=== PATIENT | male | born 1960 | race Caucasian/White ===

== ENCOUNTER 2016-09-05 09:12 | Emergency (ER) | payer OTHER ==
[~2016-09-05] VITALS: Ht 172.7 cm; Wt 85.7 kg
[2016-09-05 10:24] VITALS: BP 122/61
== END 2016-09-05 10:24 | disposition home or self-care (01) ==
LOC: ED 09:12
DX: F41.9 Anxiety disorder, unspecified (principal); I10 Essential (primary) hypertension; I48.0 Paroxysmal atrial fibrillation

== ENCOUNTER 2017-02-18 08:30 | Emergency (ER) | payer OTHER ==
[2017-02-18 09:42] LABS: microscopic required? NO
[2017-02-18 09:42] LABS: BASOPHIL % 0.2 % (0-2); PLATELET COUNT 198 x10^3mcL (130-400); RED CELL DISTRIBUTION WIDTH 13.1 % (11.5-14.5)
[2017-02-18 09:58] LABS: CALCIUM 8.6 mg/dL (8.5-10.1); CARBON DIOXIDE 28.2 mmol/L (21-32); CHLORIDE SERUM 106 mmol/L (98-107); CREATININE SERUM 0.9 mg/dL (0.7-1.3); GFR1 > 60 mL/min; GLUCOSE SERUM 140 mg/dL (74-106); POTASSIUM SERUM 4.4 mmol/L (3.5-5.1); SODIUM SERUM 138 mmol/L (136-145)
[2017-02-18 09:58] LABS: AMPHETAMINE QUAL UR NONE DETECTED (NEG <=1000)
[2017-02-18 10:10] LABS: ALBUMIN 3.7 g/dL (3.4-5.0); ALKALINE PHOSPHATASE 64 U/L (46-116); ALT/SGPT 32 U/L (16-63); AST/SGOT 21 U/L (15-37); BILIRUBIN TOTAL 0.9 mg/dL (0.20-1.00); CHOLESTEROL 151 mg/dL (<200); HDL CHOLESTEROL 44 mg/dL (40-60); T4(THYROXINE) 6.3 ug/dL (4.7-13.3)
[2017-02-18 10:23] LABS: urine erythrocyte NEGATIVE (NEGATIVE)
[2017-02-18 11:25] VITALS: BP 123/86
== END 2017-02-18 11:25 | disposition home or self-care (01) ==
LOC: ED 08:30
PROVIDERS: Emergency Medicine
DX: I10 Essential (primary) hypertension (principal); I48.0 Paroxysmal atrial fibrillation; Z85.528 Personal history of other malignant neoplasm of kidney
CPT/HCPCS: 36415; 83880

== ENCOUNTER 2017-06-04 08:24 | Emergency (ER) | payer OTHER ==
[~2017-06-04] VITALS: Ht 172.7 cm; Wt 87.2 kg
[2017-06-04 08:32] VITALS: Ht 172.7 cm; Wt 87.2 kg
[2017-06-04 10:00] VITALS: BP 124/78
== END 2017-06-04 10:00 | disposition home or self-care (01) ==
LOC: ED 08:24
DX: R00.2 Palpitations (principal); I10 Essential (primary) hypertension

== ENCOUNTER 2017-11-20 07:31 | Emergency (ER) | payer OTHER ==
[~2017-11-20] VITALS: Ht 172.7 cm; Wt 88.0 kg
[2017-11-20 07:37] VITALS: Ht 172.7 cm; Wt 88.0 kg
[2017-11-20 08:26] LABS: BASOPHIL % 0.1 % (0-2); PLATELET COUNT 193 x10^3mcL (130-400); RED CELL DISTRIBUTION WIDTH 13.3 % (11.5-14.5)
[2017-11-20 08:29] LABS: CALCIUM 8.6 mg/dL (8.5-10.1); CARBON DIOXIDE 27.1 mmol/L (21-32); CHLORIDE SERUM 103 mmol/L (98-107); CREATININE SERUM 1.1 mg/dL (0.7-1.3); GFR1 > 60 mL/min; GLUCOSE SERUM 126 mg/dL (74-106); POTASSIUM SERUM 3.5 mmol/L (3.5-5.1); SODIUM SERUM 142 mmol/L (136-145)
[2017-11-20 08:33] LABS: ALBUMIN 3.8 g/dL (3.4-5.0); ALKALINE PHOSPHATASE 63 U/L (46-116); ALT/SGPT 14 U/L (16-63); AMYLASE 78 U/L (25-115); AST/SGOT 25 U/L (15-37); BILIRUBIN TOTAL 2.06 mg/dL (0.20-1.00); LIPASE 116 IU/L (73-393); TOTAL PROTEIN, SERUM 6.9 g/dL (6.4-8.2)
[2017-11-20 08:35] LABS: microscopic required? NO
[2017-11-20 09:26] LABS: UA SPECIFIC GRAVITY 1.015 (1.005-1.035); urine erythrocyte NEGATIVE (NEGATIVE)
[2017-11-20 10:50] VITALS: BP 113/71
== END 2017-11-20 10:50 | disposition home or self-care (01) ==
LOC: ED 07:31
PROVIDERS: Emergency Medicine
DX: R10.10 Upper abdominal pain, unspecified (principal); R11.10 Vomiting, unspecified; E86.0 Dehydration; I10 Essential (primary) hypertension; I48.91 Unspecified atrial fibrillation; D49.519 Neoplasm of unspecified behavior of unspecified kidney
CPT/HCPCS: 83880; J2405; J7030

== ENCOUNTER 2018-01-02 22:29 | Emergency (ER) | payer OTHER ==
[~2018-01-02] VITALS: Ht 172.7 cm; Wt 86.2 kg
[2018-01-02 22:42] VITALS: Ht 172.7 cm; Wt 86.2 kg
[2018-01-03 01:18] LABS: BASOPHIL % 0.4 % (0-2); PLATELET COUNT 205 x10^3mcL (130-400); RED CELL DISTRIBUTION WIDTH 13.6 % (11.5-14.5)
[2018-01-03 01:23] LABS: CALCIUM 9.1 mg/dL (8.5-10.1); CARBON DIOXIDE 30.3 mmol/L (21-32); CHLORIDE SERUM 103 mmol/L (98-107); GFR1 > 60 mL/min; GLUCOSE SERUM 94 mg/dL (74-106); POTASSIUM SERUM 4.1 mmol/L (3.5-5.1); SODIUM SERUM 141 mmol/L (136-145)
[2018-01-03 01:36] LABS: ALBUMIN 4.1 g/dL (3.4-5.0); ALKALINE PHOSPHATASE 78 U/L (46-116); ALT/SGPT 41 U/L (16-63); AST/SGOT 30 U/L (15-37); BILIRUBIN TOTAL 1.46 mg/dL (0.20-1.00); MAGNESIUM 2.1 mg/dL (1.8-2.4); TOTAL PROTEIN, SERUM 7.3 g/dL (6.4-8.2)
[2018-01-03 03:08] VITALS: BP 121/78
== END 2018-01-03 03:08 | disposition home or self-care (01) ==
LOC: ED 22:29
PROVIDERS: Emergency Medicine
DX: R00.1 Bradycardia, unspecified (principal); R42 Dizziness and giddiness; R20.2 Paresthesia of skin; R51 Headache; R11.0 Nausea; I10 Essential (primary) hypertension; F41.9 Anxiety disorder, unspecified; Z98.52 Vasectomy status
CPT/HCPCS: 84439; J7030; Q0092